=== PATIENT | male | born 1985 | race Two or more races ===

== ENCOUNTER 2016-09-01 21:41 | Inpatient (IN) | payer OTHER ==
--- NOTE | ~2016-09-01 | CR72 ---
[facility] A Service of [facility] RADIOLOGY TEXT RESULTS PATIENT: ROMINA DEL TORO LOCATION: [facility] 225-01 : 87 UNIT #: [id number] AGE: [address]: Megan Faulkner MD SEX: M ORDER DR: [id number] [facility] [address] [place], [place] [address] [id number] MR#: [id number] #: [id number] NAME: ROMINA DEL TORO : 1985 SEX: M STUDY DATE/TIME: 09/01/2016 22:50 UNIT: [facility] ROOM: [facility] STUDY DESCRIPTION: CR Chest Single View Portable Attending Physician: Allen Nelson M.D. Ordering Physician: Brenna Bernardo M.D. Primary Care Physician: Primary Care Physician No MEDICAL IMAGING REPORT This report is preliminary unless electronic signature is present EXAM Portable chest INDICATION Shortness of air today. PROCEDURE Frontal view chest COMPARISON None FINDINGS Heart size normal. Patchy alveolar opacity in both lungs. No pleural fluid or pneumothorax. IMPRESSION Patchy alveolar opacities in both lungs suspected to represent edema. Dictated by... Chris Nguyen M.D. THIS IS AN ELECTRONICALLY VERIFIED REPORT Chris Nguyen M.D. at 09/06/2016 7:25 AM Ashutosh TD: 09/02/2016 09:33 JOB #: [id number] MEDICAL IMAGING REPORT Page 1 of 1 COPY
--- NOTE | ~2016-09-01 | HP ---
Unit #: [id number] #: [id number] Patient: ROMINA DEL TORO [id number] [address] [place], [place] [address] [id number] MR#: [id number] NAME: ROMINA DEL TORO ROOM: 570[address] Age: 31 Sex: M Admission Date: 09/02/2016 : 1985 Attending Physician: Jenniffer Alvarado M.D. Primary Care Physician: No Primary Care Physician HISTORY AND PHYSICAL CHIEF COMPLAINT Accidental overdose with acute respiratory failure. HISTORY This 32-year-old male with history of asthma, polysubstance abuse, is admitted as an overdose. The patient uses methamphetamines. He ingested an unknown substance yesterday, and became unresponsive. He developed some frothy, bloody sputum with this and EMS was called. They gave the patient 8 mg of Narcan and brought him to the ER where he required 2 mg more of IV Narcan. He initially wanted to leave, but was hypoxic and short of breath and ER physician convinced him to stay. Chest x-ray shows bilateral infiltrates which could be pneumonia versus noncardiac pulmonary edema. I weaned down his oxygen. He currently is 100% on 4 L of oxygen, is somnolent but easily arousable. Girlfriend gives most of the history. PAST MEDICAL HISTORY Asthma. ALLERGIES None. HOME MEDICATIONS P.r.n. inhaler. FAMILY HISTORY Negative for lung disease. SOCIAL HISTORY The patient is homeless, living with his girlfriend. Smokes one half pack per day of tobacco, does not drink alcohol. He injects methamphetamines. REVIEW OF SYSTEMS Difficult to obtain as patient is somnolent but arousable. PHYSICAL EXAMINATION GENERAL APPEARANCE: Somnolent but arousable 32-year-old male who currently is in no acute distress. VITAL SIGNS: Temperature 96.5, pulse 84, respirations initially 29, O2 saturation currently now is 100% on 4 L of oxygen. Blood pressure 122/83. HEENT: Eyes PERRLA. Extraocular muscles are intact. Pharynx is benign. NECK: Supple without adenopathy or thyromegaly. CHEST: Clear. Unit #: [id number] #: [id number] Patient: ROMINA DEL TORO CARDIAC: Normal S1 and S2 without S3, S4 or murmur. ABDOMEN: Bowel sounds are present. No hepatosplenomegaly, tenderness or masses. EXTREMITIES: Without clubbing, cyanosis or edema. Pedal pulses are present. No splinter hemorrhages noted over the nail beds. NEUROLOGIC: The patient is somnolent but arousable. His cranial nerves are intact. He has equal strength throughout. DIAGNOSTIC STUDIES LABORATORY: Admission labs - hematocrit is 46.5, white blood count 10.2, normal platelet count, normal cardiac enzymes, normal coags. SMA-12 - glucose 154, BUN 24. Alcohol level is less than 5. Initial ABG - pH 7.31, pCO2 51, pO2 63, O2 saturation 86% on a nonrebreather. Again, patient has improved. IMAGING: Chest x-ray shows bilateral infiltrates. Could be pneumonia versus edema. EKG shows normal sinus rhythm, rate 90, with J point elevation. ASSESSMENT 1. Accidental overdose. 2. Acute hypoxic respiratory failure secondary to aspiration pneumonia versus noncardiac pulmonary edema. 3. Polysubstance abuse. 4. History of asthma. 5. Homeless. PLANS 1. Zosyn. 2. Albuterol. 3. Check HIV. 4. Urine tox screen. 5. Gentle IV fluids. 6. The patient's girlfriend declines social work help. 7. Further workup and consultations depending on above. Dictated by Jenniffer Alvarado M.D. AML/df TD: 09/02/2016 06:52 JOB #: [id number] Unit #: [id number] #: [id number] Patient: ROMINA DEL TORO HISTORY AND PHYSICAL Page 1 of 1 X Jenniffer Alvarado MD HISTORY AND PHYSICAL
--- NOTE | ~2016-09-01 | EKG ---
PATIENT: ROMINA DEL TORO UNIT #: [id number] Ventricular Rate: 90 BPM Atrial Rate: 90 BPM P-R Interval: 154 ms QRS Duration: 82 ms Q-T Interval: 378 ms QTC Calculation(Bezet): 462 ms P Vass: 54 degrees Calculated R Vass: 53 degrees Calculated T Vass: 58 degrees Diagnosis Line: Suspect unspecified pacemaker failure Diagnosis Line: Normal sinus rhythm Diagnosis Line: Early repolarization Diagnosis Line: Normal ECG Diagnosis Line: No previous ECGs available Diagnosis Line: Confirmed by MARLEE RATLIFF MD ([id number]) on Diagnosis Line: 09/02/2016 7:10:54 PM INTERPRETING MD: GAUDENCIO RICHEY
--- NOTE | ~2016-09-01 | CR72 ---
[facility] A Service of [facility] RADIOLOGY TEXT RESULTS PATIENT: ROMINA DEL TORO LOCATION: [facility] 225-01 : 87 UNIT #: [id number] AGE: [address]: Megan Faulkner MD SEX: M ORDER DR: [id number] [id number] [place], [place] [address] [id number] I MR#: [id number] Acc #: [id number] NAME: ROMINA DEL TORO : 1985 SEX: M STUDY DATE/TIME: 09/03/2016 5:15 UNIT: [facility] ROOM: [facility] STUDY DESCRIPTION: CR Chest Single View Portable Attending Physician: Allen Nelson M.D. Ordering Physician: Allen Nelson M.D. Primary Care Physician: No Primary Care Physician MEDICAL IMAGING REPORT This report is preliminary unless electronic signature is present EXAM Portable chest. INDICATION Shortness of air today. PROCEDURE Frontal view chest. COMPARISON 09/01/2016 FINDINGS Heart size unchanged. Persistent vascular congestion and interstitial and alveolar opacities. No new dense consolidation or visible pneumothorax. IMPRESSION Stable Dictated by... Chris Nguyen M.D. THIS IS AN ELECTRONICALLY VERIFIED REPORT Chris Nguyen M.D. at 09/06/2016 7:21 AM MICHAEL/drea TD: 09/03/2016 10:06 JOB #: [id number] MEDICAL IMAGING REPORT Page 1 of 1 COPY
--- NOTE | ~2016-09-01 | DS ---
Unit #: [id number] #: [id number] Patient: ROMINA DEL TORO [id number] [address] [place], [place] [address] [id number] I MR#: [id number] NAME: ROMINA DEL TORO ROOM: 225 Age: 31 Sex: M Admission Date: 09/02/2016 : 1985 Discharge Date: 09/04/2016 Attending Physician: Megan Faulkner M.D. Primary Care Physician: No Primary Care Physician DISCHARGE SUMMARY PRINCIPAL DIAGNOSES 1. Acute hypoxic respiratory failure secondary to #2. 2. Probable mild aspiration pneumonia, now resolved. 3. Polysubstance overdose including amphetamines, marijuana and opiates. 4. Intravenous drug abuse. 5. Mild protein malnutrition. 6. Tobaccoism. 7. 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 CONSULTANTS None. PROCEDURES Two-dimensional echocardiogram on September 03, 2016 with mobile linear echogenic density attached to the tip of the anterior leaflet consistent with vegetation versus redundant and/or ruptured chordae. CLINICAL HISTORY AND HOSPITAL COURSE Mr. Del Toro is a 31-year-old -[place] male brought to the emergency department after he ingested unknown substance and was found unresponsive. He was mildly hypoxic in the emergency department and chest x-ray revealed bilateral infiltrates. He was admitted for further evaluation. Patient was maintained on IV antibiotics. However, he remained afebrile throughout hospitalization and his leukocytosis resolved rather quickly. His associated somnolence with his substance overdose also resolved. He was currently in the process of being discharged when a two-dimensional echocardiogram which was done for further evaluation revealed a questionable vegetation of the mitral valve. The plan had been for patient to be discharged home when his two-dimensional echocardiogram revealed a questionable vegetation in the mitral valve, and discharge was held. There had been plans for a SHANKAR while hospitalized. However, after discussion with Dr. Madan Pearson, the covering epoxy specialist, who personally reviewed the two-dimensional echocardiogram, it is felt that this abnormality is most consistent with a chordae tendineae and not a vegetation. This would be consistent with patient's lack of fever, negative blood cultures, and minimally elevated procalcitonin which I feel is most likely secondary to aspiration. Antibiotics have been discontinued, and patient will be discharged home. Will plan for an outpatient SHANKAR. Unit #: [id number] #: [id number] Patient: ROMINA DEL TORO DISCHARGE CONDITION Stable. DISCHARGE STATUS Discharge to home. DISCHARGE MEDICATIONS None. DISCHARGE INSTRUCTIONS Refrain from any further IV drug abuse or tobacco use. FOLLOWUP Patient will follow up in [facility] in two weeks. Can arrange for outpatient SHANKAR at that time. JOB #: [id number] Dictated by... Megan Faulkner M.D. MALIK/allyssa TD: 09/06/2016 21:15 JOB #: [id number] DISCHARGE SUMMARY Page 1 of 1 X Megan Faulkner MD X DISCHARGE SUMMARY
[2016-09-01 22:33] LABS: ARTERIAL BLD GAS O2 SATURATION 86.2 % (90.0-100.0); ARTERIAL BLOOD GAS CARBOXY HB 4.6 %sat (0.0-9.0); ARTERIAL BLOOD GAS HCO3 25.9 mmol/L; ARTERIAL BLOOD GAS MET HB 0.5 %sat (0.0-2.0); ARTERIAL BLOOD GAS pH 7.312 (7.350-7.450)
[2016-09-01 22:35] LABS: ARTERIAL BLOOD GAS ART SITE LEFT BRACHIAL; ARTERIAL BLOOD GAS DELIVERY NON REBREATHER MASK; ARTERIAL BLOOD GAS PCO2 51.3 mmHg (35.0-45.0); ARTERIAL BLOOD GAS PO2 63.2 mmHg (80.0-100); ARTERIAL DRAW? YES
[2016-09-01 23:13] LABS: POC - CKMB 3.2 ng/mL (0.0-7.9); POC - TROPONIN <0.05 ng/mL (<=0.05)
[2016-09-01 23:32] LABS: BASOPHIL% 0.1 % (0-2.5); EOSINOPHIL# 0.1 X10e3 (0-0.7); EOSINOPHIL% 0.8 % (0.0-7.0); HEMATOCRIT 46.5 % (38.0-50.0); HEMOGLOBIN 14.6 gm/dL (13.0-16.0); LYMPHOCYTE# 0.8 X10e3 (1.0-3.5); MEAN CELL VOLUME 88.1 FL (83-96); MEAN CORPUSCULAR HEMOGLOBIN 27.7 PG (28-34); MEAN CORPUSCULAR HGB CONC 31.4 g/dL (30-36); MEAN PLATELET VOLUME 8.6 FL (6.5-11.5); MONOCYTE# 0.3 X10e3 (0-1.0); NEUTROPHIL% 88.1 % (40-75); PLATELET COUNT 190 X10e3 (140-420); RED BLOOD COUNT 5.28 X10e (3.90-5.60); RED CELL DISTRIBUTION WIDTH 13.2 % (11.0-15.5); WHITE BLOOD COUNT 10.2 X10e3 (4.0-10.5)
[2016-09-01 23:35] LABS: DIFF IND NO
[2016-09-01 23:47] LABS: PARTIAL THROMBOPLASTIN TIME 23.8 SECONDS (23.5-31.3); PROTHROMBIN TIME (PATIENT) 10.9 SECONDS (9.6-11.5)
[2016-09-02] LABS: ALBUMIN SERUM 4.2 g/dL (3.5-5.0); ALKALINE PHOSPHATASE 89 U/L (32-92); ALT (SGPT) 32 U/L (10-40); AST (SGOT) 42 U/L (10-42); BILIRUBIN, DIRECT 0.1 mg/dL (0.0-0.2); BILIRUBIN,INDIRECT 0.6 mg/dL (0.0-0.9); BILIRUBIN,TOTAL 0.7 mg/dL (0.2-2.0); BLOOD UREA NITROGEN 24 mg/dL (9-23); BUN/CREATININE RATIO 18.46; CARBON DIOXIDE 27 mmol/L (22-31); CHLORIDE 104 mmol/L (100-111); CREATININE SERUM 1.3 mg/dL (0.6-1.4); GLOM FILT RATE Estimated 73.2 mL/min (>60); GLUCOSE FASTING 154 mg/dL (70-110); POTASSIUM 4.2 mmol/L (3.5-5.1); PROTEIN TOTAL SERUM 7.3 g/dL (6.0-8.3); SODIUM 140 mmol/L (135-145)
[2016-09-02 00:07] LABS: ALCOHOL BLOOD <5 mg/dL (0)
[2016-09-02 06:10] LABS: AMPHETAMINE POS (NEG); BARBITURATES NEG (NEG); BENZODIAZEPINES NEG (NEG); COCAINE NEG (NEG); MARIJUANA POS (NEG); OPIATES POS (NEG); TRICYCLIC ANTIDEPRESSANTS NEG (NEG); U METHADONE NEG (NEG)
[2016-09-02 06:51] LABS: BASOPHIL% 0.1 % (0-2.5); DIFF IND YES; EOSINOPHIL% 0.1 % (0.0-7.0); HEMATOCRIT 42.3 % (38.0-50.0); HEMOGLOBIN 13.4 gm/dL (13.0-16.0); LYMPHOCYTE# 1.1 X10e3 (1.0-3.5); MEAN CELL VOLUME 86.9 FL (83-96); MEAN CORPUSCULAR HEMOGLOBIN 27.5 PG (28-34); MEAN CORPUSCULAR HGB CONC 31.6 g/dL (30-36); MEAN PLATELET VOLUME 8.2 FL (6.5-11.5); MONOCYTE# 0.5 X10e3 (0-1.0); MONOCYTE% 3.4 % (3.0-12.0); NEUTROPHIL# 14.1 X10e3 (1.5-7.1); NEUTROPHIL% 89.4 % (40-75); PLATELET COUNT 165 X10e3 (140-420); RED BLOOD COUNT 4.87 X10e (3.90-5.60); RED CELL DISTRIBUTION WIDTH 13.3 % (11.0-15.5); WHITE BLOOD COUNT 15.8 X10e3 (4.0-10.5)
[2016-09-02 07:14] LABS: ANISOCYTOSIS SL; HYPOCHROMIA SL; PLATELET ESTIMATE NORMAL (NORMAL)
[2016-09-02 07:22] LABS: BUN/CREATININE RATIO 19.16; CALCIUM SERUM 8.6 mg/dL (8.4-10.2); CREATININE SERUM 1.2 mg/dL (0.6-1.4); GLOM FILT RATE Estimated 81.3 mL/min (>60)
[2016-09-02] MEDS ORDERED: NO MEDICATIONS (08:10)
[2016-09-03 07:48] LABS: HEMATOCRIT 37.9 % (38.0-50.0); HEMOGLOBIN 11.9 gm/dL (13.0-16.0); MEAN CELL VOLUME 87.7 FL (83-96); MEAN CORPUSCULAR HEMOGLOBIN 27.5 PG (28-34); MEAN CORPUSCULAR HGB CONC 31.3 g/dL (30-36); MEAN PLATELET VOLUME 8.5 FL (6.5-11.5); RED BLOOD COUNT 4.32 X10e (3.90-5.60); RED CELL DISTRIBUTION WIDTH 13.2 % (11.0-15.5); WHITE BLOOD COUNT 4.8 X10e3 (4.0-10.5)
[2016-09-03 08:29] LABS: CALCIUM SERUM 8.1 mg/dL (8.4-10.2); CREATININE SERUM 0.8 mg/dL (0.6-1.4); GLOM FILT RATE Estimated 120.8 mL/min (>60); POTASSIUM 4.2 mmol/L (3.5-5.1)
[2016-09-03 08:36] LABS: PROCALCITONIN 0.1 NG/ML
[2016-09-04 05:41] LABS: BASOPHIL% 0.6 % (0-2.5); EOSINOPHIL# 0.3 X10e3 (0-0.7); EOSINOPHIL% 6.3 % (0.0-7.0); HEMATOCRIT 35.7 % (38.0-50.0); HEMOGLOBIN 11.6 gm/dL (13.0-16.0); LYMPHOCYTE% 35.7 % (17.0-45.0); MEAN CORPUSCULAR HEMOGLOBIN 27.8 PG (28-34); MEAN CORPUSCULAR HGB CONC 32.3 g/dL (30-36); MEAN PLATELET VOLUME 8.3 FL (6.5-11.5); MONOCYTE# 0.3 X10e3 (0-1.0); MONOCYTE% 5.5 % (3.0-12.0); NEUTROPHIL# 2.9 X10e3 (1.5-7.1); NEUTROPHIL% 51.9 % (40-75); PLATELET COUNT 159 X10e3 (140-420); RED BLOOD COUNT 4.15 X10e (3.90-5.60); WHITE BLOOD COUNT 5.5 X10e3 (4.0-10.5)
[2016-09-04 06:10] LABS: DIFF IND NO
[2016-09-04 06:38] LABS: ALBUMIN SERUM 3.3 g/dL (3.5-5.0); CALCIUM SERUM 8.4 mg/dL (8.4-10.2); CREATININE SERUM 0.8 mg/dL (0.6-1.4); GLOM FILT RATE Estimated 120.8 mL/min (>60); POTASSIUM 3.9 mmol/L (3.5-5.1); PROTEIN TOTAL SERUM 5.7 g/dL (6.0-8.3)
[2016-09-08 00:57] LABS: HA AB IGM (HEPPAN) Nonreactive (()); HB CORE AB IGM (HEPPAN) Nonreactive (Nonreactive); HB S AG (HEPPAN) Nonreactive (Nonreactive); HEP C AB (HEPPAN) Nonreactive (Nonreactive); HEP C AB SIGNAL TO CUTOFF 0.05 ratio (<1.00)
== END 2016-09-04 18:05 | disposition home or self-care (01) | DRG 917 ==
LOC: CED 21:41 → C2A 09-02 04:20 → CEDOF 09-02 04:20 → C2A 09-02 04:43 → EDBD 09-02 04:43 → CED 09-02 04:43 → CEDOF 09-02 04:43 → C2A 09-02 07:45
PROVIDERS: Emergency Medicine; Internal Medicine
PROC: B246YZZ Ultrasonography of Right and Left Heart using Other Contrast (ICD-10-PCS; principal; 2016-09-03)
DX: T43.621A Poisoning by amphetamines, accidental (unintentional), initial encounter (principal); J69.0 Pneumonitis due to inhalation of food and vomit; J96.01 Acute respiratory failure with hypoxia; I51.1 Rupture of chordae tendineae, not elsewhere classified; E44.1 Mild protein-calorie malnutrition; T40.601A Poisoning by unspecified narcotics, accidental (unintentional), initial encounter; T40.7X1A Poisoning by cannabis (derivatives), accidental (unintentional), initial encounter; F17.210 Nicotine dependence, cigarettes, uncomplicated; J45.909 Unspecified asthma, uncomplicated; Z59.0 Homelessness; F15.10 Other stimulant abuse, uncomplicated; F11.10 Opioid abuse, uncomplicated; F12.10 Cannabis abuse, uncomplicated
CPT/HCPCS: 36600; 71010; 80048; 80053; 80074; 80076; 80307; 82308; 82553; 82803; 84484; 85025; 85027; 85610; 85730; 87040; 87806; 93005; 93306; 94640; 94760; 99285; G0480; J2543; J3370